=== PATIENT | male | born 1985 | race Caucasian/White ===

== ENCOUNTER 2017-03-16 20:37 | Emergency (ER) | payer OTHER ==
[2017-03-16 20:48] VITALS: BP 153/85
--- NOTE | 2017-03-16 22:05 | RAD ---
Indication: Right forearm pain. 2 views of the right forearm are reviewed. No evidence of radiopaque foreign body is identified. Deformity of the distal radius likely due to old fracture. IMPRESSION: No evidence of radiopaque foreign body is noted. Deformity of the radius likely due to old injury.
[2017-03-16] MEDS ORDERED: Tetan/Diph/Pertus SYR(Tdap)* 0.5 ML SYR(BOOSTRIX) use SYR IM ONE (22:11)
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
== END 2017-03-16 22:17 | disposition home or self-care (01) ==
LOC: ED 20:37
DX: S51.811A Laceration without foreign body of right forearm, initial encounter (principal); W45.8XXA Other foreign body or object entering through skin, initial encounter; Y92.9 Unspecified place or not applicable; Z88.0 Allergy status to penicillin; Z87.891 Personal history of nicotine dependence
CPT/HCPCS: 12001; 90471; 90715; 99282

== ENCOUNTER 2019-03-24 08:56 | Emergency (ER) | payer OTHER ==
[2019-03-24 09:14] VITALS: BP 114/77
--- NOTE | 2019-03-24 10:04 | UC ---
Laceration HPI - HPI Summary HPI Summary: Pt sustained lacerations to right index and middle finger when he was trying to open a can of meat and the cover slipped and the can fell causing 2 lacerations. Last tetanus: unsure - History Of Current Complaint Chief Complaint: UCLaceration Stated Complaint: HAND LACERATION Time Seen by Provider: 03/24/19 10:03 Hx Obtained From: Patient Laceration Location: Finger Mechanism Of Injury: Sharp Trauma Onset/Duration: Sudden Onset Severity: Mild Pain Intensity: 0 Aggravating Factors: Movement - Bending of right middle finger causes the laceration to bleed because of its location - Allergies/Home Medications Allergies/Adverse Reactions: Allergies Allergy/AdvReac Type Severity Reaction Status Date / Time amoxicillin Allergy Nausea And Verified 03/24/19 09:10 Vomiting Penicillins Allergy Nausea And Verified 03/24/19 09:10 Vomiting Home Medications: Home Medications NK [No Home Medications Reported] 03/24/19 [History Confirmed 03/24/19] PMH/Surg Hx/FS Hx/Imm Hx Previously Healthy: Yes - Surgical History Surgical History: None - Family History Known Family History: Positive: Non-Contributory - Social History Occupation: Employed Full-time Alcohol Use: Rare Substance Use Type: None Smoking Status (MU): Former Smoker Review of Systems All Other Systems Reviewed And Are Negative: Yes Skin: Positive: Other - Lacerations to right index and middle fingers, bleeding is controlled Motor: Positive: Negative Neurovascular: Positive: Negative Musculoskeletal: Positive: Negative Psychological: Positive: Negative Is Patient Immunocompromised?: No Physical Exam Triage Information Reviewed: Yes Appearance: Well-Appearing, No Pain Distress, Well-Nourished Vital Signs: Initial Vital Signs Temp 98.6 F 03/24/19 09:05 Pulse 60 03/24/19 09:05 Resp 20 03/24/19 09:05 BP 114/77 03/24/19 09:05 Pulse Ox 99 03/24/19 09:05 Vital Signs Reviewed: Yes Musculoskeletal: Positive: Strength Intact, ROM Intact, No Edema, Other: - Good finger strength with flexion and extension against resistance Neurological: Positive: Alert, Muscle Tone Normal Psychological Exam: Normal Skin: Positive: Other - 1.0 cm laceration to dorsum right index finger between PIP and DIP joints, 1.5 cm laceration dorsum right middle finger. Laceration Repair - Laceration Repair 1 Description: Linear Laceration Size After Repair: Length (cm) - 1.0 cm between right index PIP and DIP joints Modified For Repair: No Type Injection: Local Anesthesia Used: 2.0% Lido Cleansing Completed Via Routine Prep: Yes Irrigation With Pressure Irrigation Device: Yes Closure Material: Skin Adhesive, Sutures - 4-0 Prolene X 1 and skin adhesive Closure Method: Single Layer Suture Of: Skin Suture Type: Prolene 2 Description: Linear Laceration Size After Repair: Length (cm) - 1.5 cm dorsum right middle finger over PIP joint Modified For Repair: No Type Injection: Local Anesthesia Used: 2.0% Lido Cleansing Completed Via Routine Prep: Yes Irrigation With Pressure Irrigation Device: Yes Closure Material: Sutures - 4-0 Prolene X 2 Closure Method: Single Layer Suture Of: SQ Suture Type: Prolene - Pt tolerated procedure well Laceration Course/Dx - Course/Dx Course Of Treatment: Pt tolerated procedure well - Diagnosis Provider Diagnosis: Laceration of middle finger of right hand without complication, Laceration of right index finger Discharge - Sign-Out/Discharge Documenting (check all that apply): Patient Departure All imaging exams completed and their final reports reviewed: No Studies - Discharge Plan Condition: Fair Disposition: HOME Patient Education Materials: Care For Your Stitches (DC), Skin Adhesive Care ( ED) Forms: *Work Release Referrals: No Primary Care Phys,NOPCP [Primary Care Provider] - [facility] [Outside] Additional Instructions: Keep the bulky dressing on for 24 hours then change daily. Sutures out in 10 days. Follow up with your primary care provider sooner if signs of infection such as hot, red, tender, pus drainage, red streaks up your finger/hand. You were given Tdap tetanus immunization which is good for 8-10 years. - Billing Disposition and Condition Condition: FAIR Disposition: Home
[2019-03-24] MEDS ORDERED: Lidocaine 2% PF * 5 ML VIAL INJ ONE (10:13)
[2019-03-24] MEDS ORDERED: Tetan/Diph/Pertus SYR(Tdap)* 0.5 ML SYR(BOOSTRIX) use SYR IM ONE (11:06)
== END 2019-03-24 11:32 | disposition home or self-care (01) ==
LOC: UCEAST 08:56
DX: S61.210A Laceration without foreign body of right index finger without damage to nail, initial encounter (principal); S61.212A Laceration without foreign body of right middle finger without damage to nail, initial encounter; W26.8XXA Contact with other sharp object(s), not elsewhere classified, initial encounter; Y93.G1 Activity, food preparation and clean up; Y92.010 Kitchen of single-family (private) house as the place of occurrence of the external cause; Y99.8 Other external cause status; Z88.0 Allergy status to penicillin; Z87.891 Personal history of nicotine dependence
CPT/HCPCS: 12001; 90471; 90715; 99211; G0463